=== PATIENT | male | born 1970 | race Caucasian/White ===

== ENCOUNTER 2020-08-25 03:39 | Emergency (ER) | payer OTHER, SELFPAY ==
[~2020-08-25] VITALS: Ht 177.8 cm; Wt 90.9 kg
--- NOTE | 2020-08-25 03:53 | NUR ---
bib ems from group home. pt had orif done about 9 months ago per pt. pt states taking off socks today and pin from orif sticking out of left foot. pt denies pain at this time. ciaio lumite injector at bedside, pt chained up, pin out of left foot, ems intact. awaiting erp eval
--- NOTE | 2020-08-25 04:10 | NUR ---
xray at bedside
[2020-08-25 04:48] VITALS: BP 162/97
--- NOTE | 2020-08-25 04:48 | NUR ---
erp removed pin, left foot cleaned with sterile saline and dressed with xerofoam and gauze dressing.
== END 2020-08-25 04:57 | disposition home or self-care (01) ==
LOC: ED 03:46
DX: Z47.2 Encounter for removal of internal fixation device (principal); M79.672 Pain in left foot
CPT/HCPCS: 99284

== ENCOUNTER 2020-10-30 13:29 | Outpatient (CLI) | payer MEDICAID, OTHER | END 2020-10-30 23:59 | disposition home or self-care (01) | LOC: RAD 13:29 | PROVIDERS: ATTEND Nurse Practitioner Family | DX: S93.322A Subluxation of tarsometatarsal joint of left foot, initial encounter (principal); M19.072 Primary osteoarthritis, left ankle and foot; X58.XXXA Exposure to other specified factors, initial encounter; Y93.89 Activity, other specified; Y92.89 Other specified places as the place of occurrence of the external cause; Y99.8 Other external cause status ==